=== PATIENT | female | born 1995 | race Caucasian/White ===

== ENCOUNTER 2023-12-21 15:56 | Day surgery (SDC) | payer BC ==
[2023-12-21] MEDS: LIDOCAINE 1% (10MG/ML) FOR IV START INTRADERMA ONE (16:25)
[2023-12-21] MEDS: IV FLUID CONTINUATION 1,000 ML IV ONE (16:25)
[2023-12-21] MEDS: LACTATED RINGERS 1,000 ML BAG IV STA (16:25)
[2023-12-21] MEDS: DEXAMETHASONE SOD PHOSPHATE 4 MG/ML 1 ML VIAL IVP PRN (16:38)
[2023-12-21] MEDS: ONDANSETRON 4 MG/2 ML VIAL IVP PRN (16:38)
[2023-12-21 16:49] LABS: Basophils % (A) 0 %; Eosinophils # (A) 0.2 k/uL (0-0.7); Eosinophils % (A) 2 %; HCT 37.5 % (34.0-46.0); HGB 12.7 gm/dL (11.4-16.0); Lymphocytes # (A) 2.2 k/uL (1.0-4.8); Lymphocytes % (A) 32 %; MCH 30.1 pg (25.0-35.0); MCHC 33.8 g/dL (31.0-37.0); Monocytes # (A) 0.3 k/uL (0-1.0); Monocytes % (A) 5 %; Neutrophils % (A) 59 %; Platelet Count 265 k/uL (150-450); RBC 4.22 m/uL (3.80-5.40); RDW 12.3 % (11.5-15.5); WBC 6.9 k/uL (3.8-10.6)
[2023-12-21 16:52] VITALS: RESP 16
[2023-12-21 17:04] LABS: ALT 12 U/L (4-34); AST 25 U/L (14-36); African American GFR (CKD) >90 (>60 ml/min/1.73 sqM); Albumin 4.7 g/dL (3.5-5.0); Alkaline Phosphatase 85 U/L (38-126); Anion Gap 8 mmol/L; Blood Urea Nitrogen 13 mg/dL (7-17); Calcium 9.8 mg/dL (8.4-10.2); Carbon Dioxide 27 mmol/L (22-30); Chloride 105 mmol/L (98-107); Glucose 89 mg/dL (74-99); Non-African American GFR(CKD) >90 (>60 ml/min/1.73 sqM); Potassium 4.2 mmol/L (3.5-5.1); Sodium 140 mmol/L (137-145); Total Bilirubin 0.5 mg/dL (0.2-1.3); Total Protein 7.8 g/dL (6.3-8.2)
[2023-12-21] MEDS ORDERED: MIDAZOLAM 2 MG/2 ML VIAL ONE (17:27)
[2023-12-21] MEDS ORDERED: PROPOFOL 10 MG/ML 20 ML VIAL IV ONE (17:27)
[2023-12-21] MEDS ORDERED: SUCCINYLCHOLINE CHLORIDE 200 MG/10 ML VIAL IV ONE (17:27)
[2023-12-21] MEDS ORDERED: fentaNYL (PF) 50 MCG/ML 2 ML AMP ONE (17:27)
[2023-12-21] MEDS ORDERED: NEOSTIGMINE 1 MG/ML 10 ML VIAL ONE (17:27)
[2023-12-21] MEDS ORDERED: ROCURONIUM 10 MG/ML (5 ML VIAL) IV ONE (17:27)
[2023-12-21] MEDS ORDERED: LIDOCAINE 1% INJ 10MG/ML (20 ML MDV) ONE (17:27)
[2023-12-21] MEDS ORDERED: KETOROLAC 15 MG/ML 1 ML VIAL ONE (17:27)
[2023-12-21] MEDS ORDERED: GLYCOPYRROLATE 0.2 MG/ML 2 ML VIAL ONE (17:27)
[2023-12-21] MEDS: BUPIVACAINE (PF) 0.25% 30 ML VIAL SQ ONE (17:52)
--- NOTE | 2023-12-21 18:32 | P.OP ---
Date of Procedure: 12/21/23 Preoperative Diagnosis: Ectopic Postoperative Diagnosis: Same Procedure(s) Performed: Operative laparoscopy with left salpingectomy Anesthesia: ASHLEIGH Surgeon: Jazmine Mirza Estimated Blood Loss (ml): 5 IV fluids (ml): 500 Urine output (ml): 100 Pathology: other (Left ectopic ) Condition: stable Disposition: PACU Indications for Procedure: Left ectopic , hemoperitoneum Operative Findings: Left fallopian tube with ectopic , posterior cul-de-sac with noted blood Description of Procedure: Patient is taken back to the operating suite where general anesthesia was obtained without difficulty by the anesthesia department. She is prepped and draped in the normal sterile fashion in the dorsolithotomy position. A right upper catheter was used to drain the bladder of clear yellow urine. A Graves speculum was placed in the vaginal vault the cervix was visualized and grasped with a single-tooth tenaculum. An acorn uterine manipulator was advanced into the cervix as a means to manipulate the uterus throughout the procedure. Attention was then turned to the patient's abdomen where in the umbilical fold a small skin incision is made. A Veress needle was placed through the skin incision and CO2 insufflation was allowed to occur once it was deemed to be in the appropriate position with a drop of CO2 pressure with the insufflation of CO2 gas. Approximately 3 L of gas were used to obtain pneumoperitoneum. At this time a 5 mm trocar and sleeve with the laparoscope in place was placed through the skin incision and toward the pneumoperitoneum. The above-noted findings are visualized. An additional port is placed in the right lateral abdomen, this is a 5 mm port placed under direct visualization. An 8 mm port is placed in the left mid abdomen. This port is placed under direct visualization. The fallopian tube was elevated, and the LigaSure device was opened and the ectopic was transected. Hemostasis was appreciated on the pedicle. The ectopic was placed in an Endo Catch bag and removed from the abdomen. The pelvis was then copiously irrigated once again hemostasis was appreciated. Attention was then turned to the patient's vaginal vault, the single-tooth tenaculum was taken off of the anterior lip of the cervix and hemostasis is noted. All instruments were then removed from the patient's vaginal vault. All counts noted be correct x 2. Patient was taken the recovery room awake in stable condition.
[2023-12-21 18:33] VITALS: TEMP 98.4
[2023-12-21] MEDS: LACTATED RINGERS 1,000 ML IV ONE (18:56)
[2023-12-21 19:19] VITALS: BP 134/85; PULSE 85
== END 2023-12-21 19:56 | disposition home or self-care (01) ==
LOC: OR 15:56
PROVIDERS: ATTEND Obstetrics & Gynecology Obstetrics
DX: O00.102 Left tubal pregnancy without intrauterine pregnancy
CPT/HCPCS: 80053; 85025; 86850; 86900; 86901; 88305